=== PATIENT | male | born 1990 | race Caucasian/White ===

== ENCOUNTER 2022-08-07 17:01 | Emergency (ER) | payer BC, OTHER | END 2022-08-07 17:41 | disposition home or self-care (01) | LOC: DL.ED 17:01 | DX: S50.01XA Contusion of right elbow, initial encounter (principal); W01.198A Fall on same level from slipping, tripping and stumbling with subsequent striking against other object, initial encounter; Y99.0 Civilian activity done for income or pay | CPT/HCPCS: 73080-RT; 99283 ==